=== PATIENT | male | born 1990 | race Caucasian/White ===

== ENCOUNTER 2023-10-07 22:44 | Emergency (ER) | payer OTHER ==
[~2023-10-07] VITALS: Ht 177.8 cm; Wt 86.4 kg
[2023-10-08 03:15] VITALS: BP 137/91; TEMP 98.4; O2SAT 98
== END 2023-10-08 03:43 | disposition home or self-care (01) ==
LOC: M ED 22:44 → EDBD 22:44 → M ED 10-08 03:43
DX: S00.81XA Abrasion of other part of head, initial encounter (principal); Y04.8XXA Assault by other bodily force, initial encounter; Y92.009 Unspecified place in unspecified non-institutional (private) residence as the place of occurrence of the external cause; G93.0 Cerebral cysts; R03.0 Elevated blood-pressure reading, without diagnosis of hypertension